=== PATIENT | female | born 1955 | race Two or more races ===

== ENCOUNTER 2017-05-11 02:03 | Emergency (ER) | payer MEDICARE, MEDICAID ==
[~2017-05-11] VITALS: Ht 162.6 cm; Wt 72.6 kg
[2017-05-11 02:10] VITALS: BP 126/75
[2017-05-11] MEDS ORDERED: EPOGEN20000 UNI1 SUBQ (02:20)
[2017-05-11] MEDS ORDERED: ATIVAN1 MG ORAL (02:20)
[2017-05-11] MEDS ORDERED: FENOFIBRATE160 MG ORAL (02:20)
[2017-05-11] MEDS ORDERED: AMBIEN5 MG ORAL (02:20)
[2017-05-11] MEDS ORDERED: DULCOLAX10 MG RC (02:20)
[2017-05-11] MEDS ORDERED: DOCUSATE SODIU100 MG ORAL (02:20)
[2017-05-11] MEDS ORDERED: ASPIRIN EC325 MG ORAL (02:20)
[2017-05-11] MEDS ORDERED: ACETAMINOPHEN325 M1 ORAL (02:20)
[2017-05-11 02:40] LABS: EOSINOPHILS % (AUTO) 2.6 % (0.0-3.0); LYMPHOCYTES % (AUTO) 31.7 % (20.0-45.0); MEAN CORPUSCULAR HEMOGLOBIN 33.9 PG (27.0-31.0); MEAN CORPUSCULAR HGB CONC 32.6 G/DL (32.0-36.0); MEAN CORPUSCULAR VOLUME 104 FL (80-99); MEAN PLATELET VOLUME 6.4 FL (6.5-10.1); MONOCYTES % (AUTO) 9.6 % (1.0-10.0); NEUTROPHILS % (AUTO) 55.1 % (45.0-75.0); PLATELET COUNT 176 K/UL (150-450); RED BLOOD COUNT 2.85 M/UL (4.20-5.40); RED CELL DISTRIBUTION WIDTH 16.8 % (11.6-14.8)
[2017-05-11 02:41] LABS: APPEARANCE,URINE CLEAR; KETONES,URINE NEGATIVE (NEGATIVE); LEUKOCYTE ESTERASE ,URINE NEGATIVE (NEGATIVE); NITRITE,URINE NEGATIVE (NEGATIVE); PH,URINE 6 (4.5-8.0); PROTEIN,URINE 3+ (NEGATIVE); UROBILINOGEN,URINE NORMAL MG/DL (0.0-1.0)
[2017-05-11] MEDS ORDERED: LORazepam Inj 2mg/ml 1ml IV ONE (02:45)
[2017-05-11 02:49] LABS: RBC,URINE 0-2 /HPF (0 - 2); WBC,URINE 0-2 /HPF (0 - 2)
[2017-05-11 02:50] LABS: BACTERIA,URINE OCCASIONAL /HPF; SQUAMOUS EPITHELIAL CELL,UR FEW /LPF (NONE/OCC)
[2017-05-11 02:51] LABS: ANION GAP 8 mmol/L (5-15); CALCIUM 9.2 MG/DL (8.5-10.1); CARBON DIOXIDE 25 MMOL/L (21-32); CHLORIDE 112 MMOL/L (98-107); CREATININE 2.1 MG/DL (0.55-1.30); POTASSIUM 4.9 MMOL/L (3.5-5.1); SODIUM 145 MMOL/L (136-145)
[2017-05-11] MEDS ORDERED: KEPPRA500 MG ORAL (02:55)
[2017-05-11] MEDS ORDERED: FERROUS SULFAT325 MG ORAL (02:55)
[2017-05-11 02:56] LABS: ALANINE AMINOTRANSFERASE 15 U/L (12-78); ALBUMIN/GLOBULIN RATIO 0.7 (1.0-2.7); ASPARTATE AMINO TRANSFERASE 23 U/L (15-37); LIPASE 279 U/L (73-393); TOTAL PROTEIN 7.8 G/DL (6.4-8.2)
[2017-05-11] MEDS ORDERED: LORAZEPAM1 MG ORAL (02:56)
[2017-05-11] MEDS ORDERED: LACTULOSE20 GM/301 ORAL (02:56)
[2017-05-11] MEDS ORDERED: LOVENOX10 M4 SUBQ (02:57)
[2017-05-11] MEDS ORDERED: MILK OF MA400 MG/51 ORAL (02:58)
[2017-05-11] MEDS ORDERED: MULTIVITAMINS1 EAC2 ORAL (02:58)
[2017-05-11] MEDS ORDERED: NORCO 10-325 T1 EACH ORAL (02:59)
[2017-05-11] MEDS ORDERED: NEXIUM40 MG ORAL (02:59)
[2017-05-11] MEDS ORDERED: CALCIUM + D3 E1 EACH PO (03:01)
[2017-05-11] MEDS ORDERED: SERTRALINE HCL25 MG ORAL (03:02)
[2017-05-11] MEDS ORDERED: SENNA8.6 M2 PO (03:02)
[2017-05-11] MEDS ORDERED: VITAMIN B-1100 MG ORAL (03:03)
[2017-05-11] MEDS ORDERED: VITAMIN B-12500 MCG ORAL (03:03)
[2017-05-11] MEDS ORDERED: ASCORBIC ACID500 MG ORAL (03:04)
[2017-05-11] MEDS ORDERED: ZINC SULFATE220 M1 ORAL (03:04)
[2017-05-11] MEDS ORDERED: ZYPREXA10 MG ORAL (03:05)
--- NOTE | 2017-05-11 03:11 | Emergency Room Report ---
History of Present Illness General Chief Complaint: Altered Mental Status Source: Patient, Medical Record, EMS Present Illness HPI This is a 61-year-old female with a history of schizoaffective disorder, chronic kidney disease, stage IV who presents with chief complaint of altered mental status. Her long term note she been complaining of painful urination. Patient here complaining of itchiness. No fever chills but no nausea no vomiting. No other complaint. Allergies: Coded Allergies: CEPHALEXIN (Verified Allergy, Unknown, 05/11/17) CODEINE (Verified Allergy, Unknown, 05/11/17) PENICILLINS (Verified Allergy, Unknown, 05/11/17) Patient History Past Medical History: see triage record, old chart reviewed, psych hx Past Surgical History: other Pertinent Family History: none Social History: Denies: smoking Now: No Immunizations: other Reviewed Nursing Documentation: PMH: Agreed, PSxH: Agreed Nursing Documentation-PMH Hx Gastrointestinal Problems: Yes - CHRONIC KIDNEY DISEASE History Of Psychiatric Problem: Yes - SCHIZOAFFECTIVE DISORDER Review of Systems Eye: Denies: eye pain, blurred vision ENT: Denies: ear pain, nose congestion, throat swelling Respiratory: Denies: cough, shortness of breath Cardiovascular: Denies: chest pain, palpitations Gastrointestinal: Denies: abdominal pain, diarrhea, nausea, vomiting Musculoskeletal: Denies: back pain, joint pain Skin: Denies: rash Neurological: Denies: headache, numbness Endocrine: Denies: increased thirst, increased urine Hematologic/Lymphatic: Denies: easy bruising All Other Systems: negative except mentioned in HPI Physical Exam Vital Signs Date Time Temp Pulse Resp B/P (MAP) Pulse Ox O2 Delivery O2 Flow Rate FiO2 05/11/17 01:58 97.3 78 16 121/75 96 Room Air vitals normal Sp02 EP Interpretation: reviewed, normal General Appearance: well appearing, no apparent distress, alert Head: normocephalic, atraumatic Eyes: bilateral eye PERRL, bilateral eye EOMI ENT: hearing grossly normal, normal pharynx Neck: full range of motion, supple, no meningismus Respiratory: chest non-tender, lungs clear, normal breath sounds Cardiovascular #1: regular rate, rhythm, no murmur Gastrointestinal: normal bowel sounds, non tender, no mass, no organomegaly, no bruit, non-distended Musculoskeletal: back normal, gait/station normal, normal range of motion Neurologic: alert, oriented x3 Psychiatric: other - Easily agitated Skin: warm/dry Medical Decision Making Diagnostic Impression: Primary Impression: Altered mental status Qualified Codes: R41.82 - Altered mental status, unspecified ER Course Patient presents with altered mental status. No evidence of infection. Urine negative. Labs at baseline. We'll discharge home. Patient calm now after dose of Ativan and Haldol. Last Vital Signs Date Time Temp Pulse Resp B/P (MAP) Pulse Ox O2 Delivery O2 Flow Rate FiO2 05/11/17 02:10 97.8 82 16 126/75 98 Room Air Status: improved Disposition: [facility] Condition: Stable Patient Instructions: Altered Mental Status Additional Instructions: Followup with your Dr. in 7 days. Return if symptom worsen. SWEETIE HARRIS M.D. May 11, 2017 03:11
[2017-05-11 04:30] VITALS: BP 128/76
[2017-05-11 06:15] VITALS: BP 120/73
[2017-05-11 06:23] VITALS: BP 120/73
== END 2017-05-11 06:23 ==
LOC: EDBD 02:03 → EMR 04:44
DX: R41.82 Altered mental status, unspecified (principal); Z88.1 Allergy status to other antibiotic agents; Z88.6 Allergy status to analgesic agent; Z88.0 Allergy status to penicillin; F25.9 Schizoaffective disorder, unspecified; N18.9 Chronic kidney disease, unspecified
CPT/HCPCS: 36415; 80053; 81003; 83690; 85025; 96361; 96374; 99284